=== PATIENT | female | born 1940 | race Caucasian/White ===

== ENCOUNTER 2025-02-13 14:07 | Observation (INO) ==
[2025-02-13] MEDS ORDERED: IOPAMIDOL 100 ML BOTTLE IV ONE (14:08)
[2025-02-13] MEDS: MECLIZINE 25 MG TABLET PO ONE (14:54)
[2025-02-13] MEDS: 0.9 % SODIUM CHLORIDE 500 ML IV ONE (14:54)
[2025-02-13 14:59] LABS: Basophils # (Auto) 0.10 K/mcL (0.00-0.30); Basophils % (Auto) 1.4 % (0.0-2.0); Eosinophils # (Auto) 0.45 K/mcL (0.00-0.70); Eosinophils % (Auto) 6.5 % (0.0-7.0); Hematocrit 36.4 % (34.1-44.9); Hemoglobin 12.0 g/dL (11.2-15.7); Lymphocytes # (Auto) 1.29 K/mcL (1.50-4.80); Lymphocytes % (Auto) 18.7 % (15.5-49.0); Mean Corpuscular HGB Conc 33.0 g/dL (31.0-36.0); Monocytes # (Auto) 0.44 K/mcL (0.10-0.90); Monocytes % (Auto) 6.4 % (1.0-12.0); Neutrophils % (Auto) 67.0 % (38.0-78.0); Platelet Count 156 K/mcL (140-440); RBC 3.85 M/mcL (3.59-5.38); WBC 6.9 K/mcL (4.5-11.0)
[2025-02-13 15:37] LABS: ALT/SGPT 12 U/L (<40); AST/SGOT 19 U/L (<32); Albumin 4.3 gm/dL (3.2-5.2); Albumin/Globulin Ratio 2.0 (1.0-2.3); Alkaline Phosphatase 44 U/L (39-117); Anion Gap 10.0 (8.0-16.0); Bilirubin,Total 0.6 mg/dL (0.1-1.0); Blood Urea Nitrogen 23 mg/dL (8-23); Calcium 9.6 mg/dL (8.6-10.4); Carbon Dioxide 25 mmol/L (22-30); Chloride 100 mmol/L (96-108); Globulin 2.2 gm/dL (2.2-3.7); Glucose 130 mg/dL (70-105); Potassium 4.0 mmol/L (3.3-5.1); Sodium 135 mmol/L (133-145); Thyroid Stimulating Hormone 1.95 uIU/mL (0.27-5.01)
[2025-02-13 16:13] LABS: Bacteria,Urine 0 /hpf (0); Bilirubin,Urine Negative (Negative); Color,Urine Yellow; Glucose,Urine (UA) Negative (Negative); Ketones,Urine Negative (Negative); Leukocyte Esterase,Urine Negative /uL (Negative); PH,Urine 6.0 (5.0-9.0); Protein,Urine Negative (Negative); Specific Gravity,Urine < 1.005 (1.000-1.035); Urobilinogen,Urine Negative
[2025-02-13] MEDS ORDERED: ONDANSETRON 4 MG/2 ML VIAL IV PRN (20:18)
[2025-02-13] MEDS: MELATONIN 3 MG TABLET PO PRN (20:59)
[2025-02-13] MEDS: 0.9 % SODIUM CHLORIDE 10 ML SYRINGE IV SCH (21:01)
[2025-02-13 21:39] LABS: ALT/SGPT 17 U/L (<40); AST/SGOT 18 U/L (<32); Albumin 4.6 gm/dL (3.2-5.2); Alkaline Phosphatase 47 U/L (39-117); Bilirubin,Direct 0.4 mg/dL (<0.3); Bilirubin,Total 0.9 mg/dL (0.1-1.0); Globulin 2.1 gm/dL (2.2-3.7)
[2025-02-14 06:16] LABS: Basophils # (Auto) 0.08 K/mcL (0.00-0.30); Basophils % (Auto) 1.3 % (0.0-2.0); Eosinophils # (Auto) 0.54 K/mcL (0.00-0.70); Eosinophils % (Auto) 8.9 % (0.0-7.0); Hematocrit 41.3 % (34.1-44.9); Hemoglobin 12.7 g/dL (11.2-15.7); Lymphocytes # (Auto) 1.83 K/mcL (1.50-4.80); Lymphocytes % (Auto) 30.1 % (15.5-49.0); Mean Corpuscular HGB Conc 30.8 g/dL (31.0-36.0); Monocytes # (Auto) 0.55 K/mcL (0.10-0.90); Monocytes % (Auto) 9.1 % (1.0-12.0); Neutrophils % (Auto) 50.4 % (38.0-78.0); Platelet Count 146 K/mcL (140-440); RBC 4.07 M/mcL (3.59-5.38); WBC 6.1 K/mcL (4.5-11.0)
[2025-02-14] MEDS ORDERED: SIMETHICONE 80 MG TAB.CHEW PO PRN (09:43)
[2025-02-14] MEDS: ENOXAPARIN 40 MG/0.4 ML SYRINGE SQ SCH (10:24)
[2025-02-14] MEDS: LISINOPRIL 20 MG TABLET PO SCH (10:37)
[2025-02-14 11:48] LABS: ALT/SGPT 11 U/L (<40); AST/SGOT 19 U/L (<32); Albumin 4.1 gm/dL (3.2-5.2); Albumin/Globulin Ratio 1.9 (1.0-2.3); Alkaline Phosphatase 43 U/L (39-117); Anion Gap 9.0 (8.0-16.0); Bilirubin,Direct 0.3 mg/dL (<0.3); Bilirubin,Total 0.6 mg/dL (0.1-1.0); Blood Urea Nitrogen 18 mg/dL (8-23); Calcium 9.5 mg/dL (8.6-10.4); Carbon Dioxide 25 mmol/L (22-30); Chloride 103 mmol/L (96-108); Globulin 2.2 gm/dL (2.2-3.7); Glucose 83 mg/dL (70-105); Phosphorous 2.7 mg/dL (2.5-4.5); Potassium 4.1 mmol/L (3.3-5.1); Sodium 137 mmol/L (133-145); Triglycerides 47 mg/dL (<150); Uric Acid 3.6 mg/dL (2.5-8.0)
[2025-02-14] MEDS ORDERED: tiZANidine 4 MG TABLET PO PRN (12:00)
[2025-02-14] MEDS: CARVEDILOL 6.25 MG TABLET PO ONE ×2 (15:04→21:51)
[2025-02-14] MEDS ORDERED: CARVEDILOL 6.25 MG TABLET PO SCH (17:30)
[2025-02-14] MEDS: CARVEDILOL 6.25 MG TABLET PO SCH (17:41)
[2025-02-14] MEDS: SENNOSIDES 1 TABLET PO PRN (19:27)
[2025-02-15] MEDS: ACETAMINOPHEN 325 MG TABLET PO PRN (02:29)
[2025-02-15] MEDS ORDERED: CARVEDILOL 6.25 MG TABLET PO SCH (03:17)
[2025-02-15] MEDS: LEVOTHYROXINE 75 MCG TABLET PO SCH (07:27)
[2025-02-15] MEDS: PANTOPRAZOLE 40 MG TABLET PO SCH (07:27)
[2025-02-15] MEDS: POLYETHYLENE GLYCOL 3350 17 GM PACKET PO SCH (08:53)
[2025-02-15] MEDS: SENNOSIDES 1 TABLET PO SCH (08:54)
[2025-02-15] MEDS: ASPIRIN 81 MG TAB.CHEW PO SCH (08:54)
[2025-02-15] MEDS: ATORVASTATIN 40 MG TABLET PO SCH (08:54)
[2025-02-15] MEDS: CARVEDILOL 6.25 MG TABLET PO SCH (09:37)
[2025-02-19 13:45] LABS: Basophils # (Auto) 0.08 K/mcL (0.00-0.30); Basophils % (Auto) 1.5 % (0.0-2.0); Eosinophils # (Auto) 0.52 K/mcL (0.00-0.70); Eosinophils % (Auto) 9.8 % (0.0-7.0); Hematocrit 36.4 % (34.1-44.9); Hemoglobin 11.9 g/dL (11.2-15.7); Lymphocytes # (Auto) 1.59 K/mcL (1.50-4.80); Lymphocytes % (Auto) 29.8 % (15.5-49.0); Mean Corpuscular HGB Conc 32.7 g/dL (31.0-36.0); Monocytes # (Auto) 0.43 K/mcL (0.10-0.90); Monocytes % (Auto) 8.1 % (1.0-12.0); Neutrophils % (Auto) 50.6 % (38.0-78.0); Platelet Count 150 K/mcL (140-440); RBC 3.81 M/mcL (3.59-5.38); WBC 5.3 K/mcL (4.5-11.0)
== END 2025-02-15 15:12 | disposition home or self-care (01) ==
LOC: ICU 14:07 → ED 14:07 → ICU 20:21
PROVIDERS: ADMIT Student in an Organized Health Care Education/Training Program; ATTEND Student in an Organized Health Care Education/Training Program